=== PATIENT | female | born 1960 | race Caucasian/White ===

== ENCOUNTER → 2024-08-05 | Outpatient (CLI) | payer MEDICARE | END | disposition home or self-care (01) | LOC: CARD 07-29 08:30 | PROVIDERS: ATTEND Internal Medicine Cardiovascular Disease | DX: R06.09 Other forms of dyspnea (principal) ==

== ENCOUNTER → 2025-07-27 | Outpatient (CLI) | payer OTHER ==
[2025-07-27 09:58] LABS: BASO # 0.0 10*3/uL (0.0-0.1); BASO % 0.2 % (0.0-1.0); EOS # 0.3 10*3/uL (0.0-0.4); EOS % 3.1 % (1.0-4.0); MEAN CELL VOLUME 91.1 fl (81.0-99.0); MEAN CORPUSCULAR HGB 27.8 pg (27.0-31.0); MEAN PLATELET VOLUME 11.1 fl (9.6-12.3); MONO # 0.5 10*3/uL (0.1-1.0); MONO % 5.7 % (3.0-9.0); NEUT # 5.0 10*3/uL (2.3-7.9); NEUT % 59.5 % (47.0-73.0); NUCLEATED RED BLOOD CELL 0.0 % (0.0-0.0); NUCLEATED RED BLOOD CELL 0.0 10*3/uL (0.0-0.0); PLATELET COUNT AUTOMATED 240 10*3/uL (130-400); RED CELL DISTRI WIDTH 14.6 % (0-14.5)
[2025-07-27 10:37] LABS: BUN 15 mg/dl (9-23); LDL CHOLESTEROL 113 mg/dL (9-159); SGPT/ALT 32 U/L (5-49)
[2025-07-27 11:59] LABS: VITAMIN D, 25-HYDROXY 52.4 ng/mL (30-100)
== END ==
LOC: LAB 09:24
PROVIDERS: ATTEND Registered Nurse
DX: E51.9 Thiamine deficiency, unspecified (principal); R53.83 Other fatigue; E56.9 Vitamin deficiency, unspecified; R73.9 Hyperglycemia, unspecified; E78.5 Hyperlipidemia, unspecified; E53.8 Deficiency of other specified B group vitamins; E55.9 Vitamin D deficiency, unspecified; E63.9 Nutritional deficiency, unspecified; E61.1 Iron deficiency